=== PATIENT | male | born 1965 | race Caucasian/White ===

== ENCOUNTER 2022-09-01 11:27 | Emergency (ER) | payer OTHER, SELFPAY ==
[2022-09-01] VITALS (26 sets, daily range): BP systolic 71–114; BP diastolic 27–80; PULSE 92–112; RESP 16–28; TEMP 37.3; O2SAT 77–100
--- NOTE | 2022-09-01 13:17 | ED.GENADULT ---
HPI - General Adult General Chief complaint: Urogenital-Male Stated complaint: genital swelling Time Seen by Provider: 09/01/22 12:49 History of Present Illness HPI narrative: 56-year-old male with history of bilateral BKA that is in rehab presenting the emergency department for evaluation of both testicular and penile swelling. Patient states the testicular edema has been fairly persistent since the surgery and he states this is actually begun to improve. Patient began having some increased swelling in the penis and describes some penile tenderness. Patient denies any difficulty urinating. Related Data Allergies Allergy/AdvReac Type Severity Reaction Status Date / Time methotrexate Allergy Other Verified 09/01/22 11:43 minocycline Allergy Other Verified 09/01/22 11:43 Review of Systems Review of Systems: All systems reviewed & are unremarkable except as noted in HPI and below PMFSH Past Medical History Medical History Below-knee amputation of left lower extremity COPD (chronic obstructive pulmonary disease) Elevated LFTs GERD (gastroesophageal reflux disease) Glaucoma Hyperlipidemia Myocardial infarct Neuropathy BIRD (obstructive sleep apnea) Peripheral artery disease Peripheral vascular disease Restless leg syndrome Rheumatoid arthritis Systolic and diastolic CHF, acute on chronic Type 1 diabetes mellitus with hyperglycemia Surgical History Surgical History History of cholecystectomy Hx of CABG Family History Family History Father Heart disease Cancer Lung disease Social History Social History Smoking packs per day: 0.5 Smoking cigarettes per day: 10.0 Years smoked: 21 Smoking pack-years: 10.50 Smoking status: Former smoker Tobacco type: cigarettes Alcohol intake: former Substance use: former Substance use type: painkillers and prescription drug Spiritual care concerns: No Exam Narrative: APPEARANCE: Well appearing, no pain, no distress, well-nourished. HEAD: normocephalic, atraumatic. EYES: PERRLA/EOMI, conjunctivae clear. NOSE: Normal no drainage NECK: Supple. No adenopathy, no masses. RESPIRATORY: Airway patent, respirations nonlabored. Clear to auscultation bilaterally, no rales, rhonchi, wheezing. CARDIOVASCULAR: Regular rate and rhythm without murmurs rubs or gallops. ABDOMINAL: Soft, nontender, nondistended, normal bowel sounds Genitourinary exam: Scrotal and penile edema that improves with elevation MUSCULOSKELETAL: Moves all extremities. Strength/ROM intact, No edema, No calf tenderness. NEURO: Alert. Cranial nerves II through XII intact. Grossly intact SKIN: Warm, dry. Normal Color. Course Course Emergency Course: 56-year-old male with history of bilateral BKA with history of congestive heart failure presented the emergency department for evaluation of scrotal and penile edema. Patient does take Lasix. Patient states he has been having some increased penis pain. No evidence of infection. Patient is afebrile with no leukocytosis and a stable hemoglobin. No significant electrolyte abnormalities. Patient does have an elevated BNP at 10,000 but no baseline BNP is on file. Patient denies any associated chest pain or shortness of breath and patient does not appear to be in respiratory distress. Patient states he does not want any additional cardiac work-up because he has follow-up with his baby attendant as outpatient. Patient states he was only interested in having the penile edema addressed. Vital Signs Vital signs: Vital Signs Temperature 99.1 F 09/01/22 11:30 Pulse Rate 105 H 09/01/22 11:30 Respiratory Rate 18 09/01/22 11:30 Blood Pressure 93/78 L 09/01/22 11:30 Pulse Oximetry 89 L 09/01/22 11:30 Oxygen Delivery Room
[2022-09-01 13:33] LABS: Basophils Percent Auto 0.1 % (0.2-1.2); Eosinophils Absolute Auto 0.2 K/mm3 (0-0.3); Eosinophils Percent Auto 2.6 % (0-4.4); Hemoglobin 8.1 g/dL (14.0-18.0); Immature Granulocyte Absolute 0.03 K/mm3 (0.00-0.031); Immature Granulocyte Percent A 0.3 % (0-0.5); Lymphocytes Absolute Auto 0.52 K/mm3 (0.9-3.2); Lymphocytes Percent Auto 5.7 % (18.3-44.2); Mean Corpuscular Hemoglobin 26.5 pg (26-34); Mean Corpuscular Volume 88.2 fl (80-100); Mean Platelet Volume 10.1 fl (7.4-10.4); Monocytes Absolute Auto 0.9 K/mm3 (0.1-0.6); Monocytes Percent Auto 10.2 % (2.6-8.5); Neutrophils Absolute Auto 7.5 K/mm3 (1.3-6.7); Neutrophils Percent Auto 81.1 % (45.5-73.1); Platelet Count Result 310 k/mm3 (150-375); Red Blood Count 3.06 M/mm3 (4.6-6.20); Red Cell Distribution Width 18.1 % (11.5-14.5); White Blood Count 9.2 K/mm3 (4.5-10.0)
[2022-09-01 13:42] LABS: Alanine Aminotransferase 29 U/L (6-50); Albumin Level 3.2 g/dL (3.5-5.1); Alkaline Phosphatase 159 U/L (38-126); Anion Gap 4 mmol/L (8-16); Aspartate Amino Transferase 41 U/L (17-59); Bilirubin,Total 0.7 mg/dL (0.2-1.3); Blood Urea Nitrogen 19 mg/dL (9-20); Calcium 8.4 mg/dL (8.4-10.2); Carbon Dioxide 29 mmol/L (22-30); Chloride 100 mmol/L (98-107); Estimated CRCL calculation 109 ml/min; Estimated Glomerular Filt Rate > 60; Glucose 108 mg/dL (65-110); Potassium 4.6 mmol/L (3.4-5.0); Sodium 133 mmol/L (137-145)
[2022-09-01 13:50] LABS: NT Pro B Type Natriuretic Pept 10700 pg/mL (19.9-100)
[2022-09-01 15:14] LABS: Appearance Urine Clear (Clear); Bacteria Urine None Seen /hpf; Bilirubin Urine Negative (Negative); Blood Urine 3+ (Negative); Color Urine Yellow (Yellow); Glucose Urine UA Negative (Negative); Ketones Urine Negative (Negative); Leukocyte Esterase Ur Trace LEU/UL (Negative); Nitrate Urine Negative (Negative); Non Pathogenic Casts 0-2; Protein Urine 1+ mg/dL (Negative); RBC Urine >100 /hpf (0-2); Specific Grav Ur 1.014 (1.001-1.035); Squamous Epithelial Cell Urine None seen /hpf (Few); Urobilinogen Urine 0.2 mg/dL (<2.0); pH Urine 5.5 (5.0-9.0)
[2022-09-01 15:21] LABS: Add Urine Microscopic? YES
== END 2022-09-01 16:32 | disposition home or self-care (01) ==
PROVIDERS: Emergency Provider Emergency Medicine
DX: N50.89 Other specified disorders of the male genital organs (principal); N48.89 Other specified disorders of penis; R31.9 Hematuria, unspecified; I50.9 Heart failure, unspecified; J44.9 Chronic obstructive pulmonary disease, unspecified; E78.5 Hyperlipidemia, unspecified; I25.2 Old myocardial infarction; E10.9 Type 1 diabetes mellitus without complications; Z87.891 Personal history of nicotine dependence
CPT/HCPCS: 36415; 80053; 81001; 83880; 85025; 87086; 87088; 99283

== ENCOUNTER 2022-09-04 11:32 | Emergency (ER) | payer OTHER, SELFPAY ==
[2022-09-04] VITALS (7 sets, daily range): BP systolic 96–132; BP diastolic 50–80; PULSE 74–97; RESP 16; TEMP 36.3–36.8; O2SAT 98–100
--- NOTE | ~2022-09-04 | CT_ITS ---
EXAMINATION: CT pelvis w con DATE: 09/04/2022 14:03 INDICATION: Penile swelling TECHNIQUE: Computed tomography (CT) of the pelvis was performed without intravenous contrast. The dos e-length product (DLP) was 931.89 mGy-cm. Automated exposure control and iterative reconstruction lorene hnique were employed. COMPARISON: None FINDINGS: There is calcified atherosclerosis of the aorta and many of the other arteries. The urinary bladder is distended. There is moderate anasarca of the abdominal wall, pelvis, and visualized proxi mal lower extremities. There is edema of the scrotum and penis. There is mild bilateral inguinal and obturator lymphadenopathy, likely reactive. There are no dilated loops of bowel. There is mild lumbar spondylosis. IMPRESSION: 1. Moderate anasarca of the abdominal wall, pelvis, and visualized proximal lower extremities and brad ma of the scrotum and penis of unclear etiology. 2. Mild lymphadenopathy, likely reactive. 3. Distention of the urinary bladder. Reviewed, dictated and finalized at location B. IMPRESSION: 1. Moderate anasarca of the abdominal wall, pelvis, and visualized proximal low er extremities and edema of the scrotum and penis of unclear etiology. 2. Mild lymphadenopathy, likely reactive. 3. Distention of the urinary bladder.
--- NOTE | 2022-09-04 13:05 | ED.MALEGU ---
HPI - Male Genitourinary General Chief complaint: Urogenital-Male Stated complaint: penile abcess Time Seen by Provider: 09/04/22 12:54 Source: patient and EMS Mode of arrival: EMS Limitations: no limitations History of Present Illness HPI Narrative: Patient came from [facility] with swelling and edematous and painful penis started 5 days ago. Patient was seen in our emergency room 4 days ago without specific diagnosis, he denies any fever, chills, nausea, vomiting. Patient was started on Keflex 500 mg twice daily yesterday by the rehab physician.. Last urination was at the morning. Related Data Allergies Allergy/AdvReac Type Severity Reaction Status Date / Time No Known Allergies Allergy Verified 09/04/22 12:17 Review of Systems Review of Systems: All systems reviewed & are unremarkable except as noted in HPI and below Exam Narrative: General appearance: Well-developed, well-nourished Skin: Normal color Head: Normocephalic, nontraumatic Eyes: Clear conjunctiva ENT: Oropharynx normal, ears normal, nose normal Neck: Supple, nontender Chest and respiratory: Airway patent, no respiratory distress, no accessory muscle use Heart: Regular rate/rhythm Abdomen: Soft, nontender, no organomegaly, quiet bowel sounds Vascular: Normal peripheral pulses, normal capillary refill. Musculoskeletal: Below-knee amputation bilaterally Neurologic: Alert and oriented ?3, CARE MANAGER CNA is normal as tested, no gross motor deficit : Male genitals images: 1. Edema of the skin of the penis, redness, tenderness, at the skin connection between the head and the shaft of the penis. No discharge. 2. Same as above Course Consultations Consultation #1: Dr. Kee Came to the emergency room, evaluated patient, suggested to continue Bactrim and to place Iverson catheter and follow-up with him as outpatient next week. Date: 09/04/22 Time: 15:45 Vital Signs Vital signs: Vital Signs Temperature 36.8 C 09/04/22 11:49 Pulse Rate 97 09/04/22 11:49 Respiratory Rate 16 09/04/22 11:49 Pulse Oximetry 98 09/04/22 11:49 Oxygen Delivery Room Air 09/04/22 11:49 Temperature 36.3 C L 09/04/22 18:00 Pulse Rate 76 09/04/22 18:00 Respiratory Rate 16 09/04/22 18:00 Blood Pressure 96/60 L 09/04/22 18:00 Pulse Oximetry 98 09/04/22 18:00 Oxygen Delivery Room Air 09/04/22 11:49 MDM - Male Genitourinary MDM Narrative Medical decision making narrative: Patient presents with edema and pain and the penis for the last few days, started on Keflex by the rehab physician yesterday, physical examination showed edema consistent with CHF of the penis and slightly of the scrotum, possible irritation of the skin/cellulitis, Dr. Kee came to the emergency room and agreed with the plan of Keflex and to follow-up with him as outpatient for further evaluation. Work-up today showed insignificant CBC, CMP and urine analysis. CT scan of the pelvis with IV contrast showed moderate anasarca of the abdominal wall, pelvis and edema of the scrotum and penis of unclear etiology, distention of the urinary bladder, Iverson catheter placed, 1300 mL urine output. Patient to be discharged on Iverson catheter. And Flomax, discussed with Dr. Kee and continue Keflex. Discussed with the rehab physician. Differential Diagnosis Differential diagnosis: Likely urinary tract infection and other (Anasarca, urinary tract infection, urinary retention, cellulitis) Medical Records Attestation: I reviewed the patient's medical records. Lab Data Attestation: I reviewed the patient's lab results. 09/04/22 13:18 09/04/22 13:17 Labs: Lab Results
[2022-09-04 13:23] LABS: Basophils Percent Auto 0.4 % (0.2-1.2); Eosinophils Absolute Auto 0.4 K/mm3 (0-0.3); Hematocrit 29.1 % (42.0-52.0); Hemoglobin 8.6 g/dL (14.0-18.0); Immature Granulocyte Absolute 0.02 K/mm3 (0.00-0.031); Immature Granulocyte Percent A 0.4 % (0-0.5); Lymphocytes Absolute Auto 0.59 K/mm3 (0.9-3.2); Lymphocytes Percent Auto 10.6 % (18.3-44.2); Mean Corpuscular HGB Conc 29.6 g/dl (32-36); Mean Corpuscular Volume 87.9 fl (80-100); Mean Platelet Volume 9.9 fl (7.4-10.4); Monocytes Absolute Auto 0.6 K/mm3 (0.1-0.6); Monocytes Percent Auto 10.1 % (2.6-8.5); Neutrophils Percent Auto 71.5 % (45.5-73.1); Platelet Count Result 313 k/mm3 (150-375); Red Blood Count 3.31 M/mm3 (4.6-6.20); Red Cell Distribution Width 19.3 % (11.5-14.5); White Blood Count 5.6 K/mm3 (4.5-10.0)
[2022-09-04 13:32] LABS: Alanine Aminotransferase 29 U/L (6-50); Albumin Level 3.1 g/dL (3.5-5.1); Alkaline Phosphatase 159 U/L (38-126); Anion Gap 6 mmol/L (8-16); Aspartate Amino Transferase 38 U/L (17-59); Bilirubin,Total 0.5 mg/dL (0.2-1.3); Blood Urea Nitrogen 22 mg/dL (9-20); Calcium 8.5 mg/dL (8.4-10.2); Carbon Dioxide 28 mmol/L (22-30); Chloride 101 mmol/L (98-107); Estimated CRCL calculation 94 ml/min; Estimated Glomerular Filt Rate > 60; Glucose 93 mg/dL (65-110); Potassium 4.2 mmol/L (3.4-5.0); Sodium 135 mmol/L (137-145)
[2022-09-04 13:50] LABS: Platelet Estimate Adequate (Adequate)
[2022-09-04 13:51] LABS: Anisocytosis 2+ (NORMAL); Hypochromasia 2+ (NORMAL); Microcytosis 1+ (NORMAL); Schistocytes None Seen (NORMAL); Target Cells 1+ (NORMAL)
[2022-09-04] MEDS: LIDOCAINE HCL 2% GEL UROJET 10 ML PKG MUCOUS MEM (15:44)
--- NOTE | 2022-09-04 15:54 | PC.NURSE ---
pt sat at bedside for extended period, unable to void. Bladder scan showed >900. ERP and urologist both spoke with pt regarding importance of rodriguez catheter, pt agreed to plan, urogel instilled in ureter
--- NOTE | 2022-09-04 16:02 | WPDURCON ---
Assessment and Plan Assessment and plan (1) Penile edema: Code(s): N48.89 - Other specified disorders of penis Status: Acute Assessment and Plan: Most likely secondary to his other generalized edema. Recommend ice pack to the penile area for comfort. He is started on antibiotics empirically. Most likely will need some diuresis. Hopefully with drainage of his bladder things will also improved. (2) Urinary retention: Code(s): R33.9 - Retention of urine, unspecified Status: Acute Assessment and Plan: Have recommended Iverson catheter placement and initiation of Flomax daily. Patient will be discharged from rehab this weekend and lives 2[place]/2 hours away. He will get plugged in with a local urologist for further management. Urology Consult Note HPI Date Seen: 09/04/22 Time Seen: 16:02 Requesting Physician: Emergency room Primary Care Provider: PHYSICIAN NOT ON STAFF Consult Narrative Reason for consult: Penile edema and urinary retention Narrative: Satnam Asencio is a 56 year old male who has multiple comorbidities including diabetes in his bilateral BKA he has. He is currently in the rehab facility and was sent back to the emergency room for the 2nd time due to some penile edema. Patient also states that he has not voided since 10:00 pm. last night. He had undergone a CT of the pelvis which revealed some generalized anasarca and edema but also distended bladder. Bladder scan shows greater than 956 cc. He states that he does not get up at night to void and his stream also varies but he has to sit to void. He is not extremely uncomfortable from this volume. He states that he has had prior Iverson catheters when he has had surgery but denies having 1 any other time. Denies any problem with having a catheter placed. Review of Systems Review of Systems: All systems reviewed & are unremarkable except as noted in HPI and below Meds Home Medications and Allergies Allergies Allergy/AdvReac Type Severity Reaction Status Date / Time No Known Allergies Allergy Verified 09/04/22 12:17 Vital Signs Vital Signs - 24 hr 09/04/22 11:49 09/04/22 12:30 09/04/22 15:58 Temperature 36.8 C 36.8 C 36.4 C Pulse Rate 97 80 74 Respiratory Rate 16 16 16 Blood Pressure 132/80 96/52 L Pulse Oximetry 98 98 98 Oxygen Delivery Room Air 09/04/22 13:30 09/04/22 14:30 Temperature Pulse Rate 80 78 Respiratory Rate 16 16 Blood Pressure 106/68 100/50 L Pulse Oximetry 98 98 Oxygen Delivery Exam Const: General: alert and awake Resp: Effort & Inspection: normal respiratory effort Cardio: Rate: regular rate Rhythm: regular rhythm GI: GI Palp: Yes Firmness to palpation present (GI) : Penis: Yes circumcised and Yes edematous Results Labs 09/04/22 13:18 09/04/22 13:17 Labs: Short CBC 09/04/22 Range/Units 13:18 WBC 5.6 (4.5-10.0) K/mm3 Hgb 8.6 L (14.0-18.0) g/dL Hct 29.1 L (42.0-52.0) % Plt Count 313 (150-375) k/mm3 BMP 09/04/22 13:17 Sodium 135 L Potassium 4.2 Chloride 101 Carbon Dioxide 28 BUN 22 H Creatinine 0.70 Glucose 93 Calcium 8.5 Liver Function 09/04/22 Range/Units 13:17 Total Bilirubin 0.5 (0.2-1.3) mg/dL AST 38 (17-59) U/L ALT 29 (6-50) U/L Alkaline Phosphatase 159 H (38-126) U/L Albumin 3.1 L (3.5-5.1) g/dL
[2022-09-04 16:26] LABS: Appearance Urine Clear (Clear); Bacteria Urine None Seen /hpf; Bilirubin Urine Negative (Negative); Blood Urine 2+ (Negative); Color Urine Yellow (Yellow); Glucose Urine UA Negative (Negative); Ketones Urine Negative (Negative); Leukocyte Esterase Ur Trace LEU/UL (Negative); Nitrate Urine Negative (Negative); Protein Urine 1+ mg/dL (Negative); RBC Urine 51-100 /hpf (0-2); Squamous Epithelial Cell Urine None seen /hpf (Few)
[2022-09-04 16:28] LABS: Specific Grav Ur 1.046 (1.001-1.035)
--- NOTE | 2022-09-04 16:29 | PC.NURSE ---
Called and gave an update on pts condition to TIFFANIE Arriaza from [facility]
[2022-09-04 16:37] LABS: Add Urine Microscopic? YES
--- NOTE | 2022-09-04 17:16 | PC.NURSE ---
Sending pt home with a leg bag for pts new indwelling catheter. Pt expressed concerns for, what people might think when they see the bag. Explained the leg bag concept to pt and he requested one.
== END 2022-09-04 18:09 ==
PROVIDERS: Emergency Provider Emergency Medicine
DX: N48.89 Other specified disorders of penis (principal); R33.9 Retention of urine, unspecified
CPT/HCPCS: 36415; 51702; 72193; 80053; 81001; 85025; 87086; 99284; Q9967